=== PATIENT | male | born 1945 | race Caucasian/White ===

== ENCOUNTER → 2016-12-03 | Outpatient (CLI) | payer MEDICARE ==
--- NOTE | 2016-12-03 09:17 | US ---
EXAMINATION TYPE: US duplex aorta DATE OF EXAM: 12/03/2016 COMPARISON: NONE CLINICAL HISTORY: Z78.9 Screening for Abdominal Aortic Aneurysm. No symptoms, previous smoker for 40 years EXAM MEASUREMENTS: Abdominal Aorta: Proximal: 2.4 x 2.4cm Mid: 1.7 x 1.9cm Distal: 2.2 x 2.1cm Bifurcation: Rt = 1.5cm Lt = 1.4cm limited views due to bowel gas Portions of aorta are obscured by overlying bowel gas. Visualized portions show no evidence of aneury smal change. IMPRESSION: Slightly suboptimal study, visualized portions of abdominal aorta show no greater than 3 cm aneurysm.
== END | disposition home or self-care (01) ==
LOC: RADUSWWP 07:19
PROVIDERS: ATTEND Family Medicine
DX: Z13.6 Encounter for screening for cardiovascular disorders (principal); I71.4 Abdominal aortic aneurysm, without rupture; Z87.891 Personal history of nicotine dependence
CPT/HCPCS: 93979

== ENCOUNTER → 2016-12-24 | Outpatient (CLI) | payer MEDICARE ==
--- NOTE | 2016-12-29 10:01 | P.ARTDOP ---
Arterial Doppler LOWER EXTREMITY ARTERIAL DOPPLER: DATE OF SERVICE: 12/24/2016 Reason for study: Bilateral calf claudication. Doppler waveforms: Multiphasic to the dorsalis pedis on both sides.. Pulse volume recording: . Pressure gradients: 20 mmHg across the right thigh. 20 mmHg gradient at or above the thigh on the left.. Ankle-brachial indices: 0.75 on the right and 0.77 on the left.. Toe pressures: 60 on the right, 44 on the left Impression: Moderate right SFA disease. Moderate left SFA disease. Possible iliac component. Toe pressures probably adequate for healing..
== END | disposition home or self-care (01) ==
LOC: RADUSWWP 12:39
PROVIDERS: ATTEND Family Medicine
DX: I73.9 Peripheral vascular disease, unspecified (principal)
CPT/HCPCS: 93923

== ENCOUNTER 2018-02-13 12:04 | Inpatient (IN) | payer MEDICARE ==
[2018-02-13] MEDS ORDERED: ATORVASTATIN 80 MG TAB PO STA (12:26)
[2018-02-13] MEDS ORDERED: ASPIRIN 81 MG PO STA (12:26)
[2018-02-13] MEDS ORDERED: HEPARIN SODIUM,PORCINE 5,000 UNIT/ML 1 ML VIAL IV STA (12:26)
[2018-02-13] MEDS ORDERED: NITROGLYCERIN SL TABS 0.4 MG TAB SUBLINGUAL STA (12:26)
[2018-02-13] MEDS ORDERED: HYDROmorphone 1 MG/ML 1 ML SYRINGE IVP STA (12:27)
--- NOTE | 2018-02-13 12:31 | ED ---
General Adult HPI - General Chief complaint: Chest Pain Stated complaint: Chest Pain Time Seen by Provider: 02/13/18 12:15 Source: patient, RN notes reviewed Mode of arrival: ambulatory Limitations: no limitations - History of Present Illness Initial comments: This is a 72-year-old male with past medical history significant for high cholesterol and a family history positive for heart attack. Patient states he also had a stroke. Patient states she's been having intermittent chest pain for the last 3 days typically lasting about 30 minutes. Patient states when he has the pain short of breath and sometimes diaphoretic. Patient states today he 's been having the pain for about an hour and a half now and it is more severe than it has been in the past. Patient states she's also short of breath and sweating and nauseated. Patient denies any recent fever chills or cough. Patient denies being lightheaded or dizzy. Patient denies any syncopal or near syncopal episodes. Patient denies any palpitation. Patient denies any abdominal pain patient denies any vomiting diarrhea recently. - Related Data Home Medications Medication Instructions Recorded Confirmed Atorvastatin [Lipitor] 40 mg PO DAILY 02/13/18 02/13/18 FLUoxetine HCL [PROzac] 40 mg PO DAILY 02/13/18 02/13/18 Losartan [Cozaar] 25 mg PO DAILY 02/13/18 02/13/18 Rivaroxaban [Xarelto] 20 mg PO HS 02/13/18 02/13/18 rOPINIRole HCL [Requip] 1 mg PO HS 02/13/18 02/13/18 Allergies Allergy/AdvReac Type Severity Reaction Status Date / Time No Known Allergies Allergy Verified 02/13/18 12:33 Review of Systems ROS Statement: Those systems with pertinent positive or pertinent negative responses have been documented in the HPI. ROS Other: All systems not noted in ROS Statement are negative. Past Medical History Past Medical History: CVA/TIA, Hyperlipidemia, Hypertension Additional Past Medical History / Comment(s): 12 stroke at the [facility] 5 years ago History of Any Multi-Drug Resistant Organisms: None Reported Past Surgical History: No Surgical Hx Reported Past Psychological History: No Psychological Hx Reported Smoking Status: Former smoker Past Alcohol Use History: None Reported Past Drug Use History: None Reported General Exam - General Exam Comments Initial Comments: GENERAL: Patient is well-developed and well-nourished. Patient is nontoxic and well- hydrated and is in mild distress. ENT: Neck is soft and supple. No significant lymphadenopathy is noted. Oropharynx is clear. Moist mucous membranes. Neck has full range of motion without eliciting any pain. EYES: The sclera were anicteric and conjunctiva were pink and moist. Extraocular movements were intact and pupils were equal round and reactive to light. Eyelids were unremarkable. PULMONARY: Unlabored respirations. Good breath sounds bilaterally. No audible rales rhonchi or wheezing was noted. CARDIOVASCULAR: There is a regular rate and rhythm without any murmurs gallops or rubs. ABDOMEN: Soft and nontender with normal bowel sounds. No palpable organomegaly was noted. There is no palpable pulsatile mass. SKIN: Skin is clear with no lesions or rashes and otherwise unremarkable. NEUROLOGIC: Patient is alert and oriented x3. Cranial nerves II through XII are grossly intact. Motor and sensory are also intact. Normal speech, volume and content. Symmetrical smile. MUSCULOSKELETAL: Normal extremities with adequate strength and full range of motion. No lower extremity swelling or edema. No calf tenderness. LYMPHATICS: No significant lymphadenopathy is noted PSYCHIATRIC: Normal psychiatric evaluation. Normal interpersonal interactions appears functionally intact in deals appropriately with others. No signs of depression. No signs of anxiety. Limitations: no limitations Course Vital Signs 02/13/18 02/13/18 02/13/18 12:06 12:10 12:23 Temperature 98.2 F Pulse Rate 100 86 79 Pulse Rate [ Hair Dresser ] Respiratory 22 Rate Blood Pressure 87/55 112/61 101/56 O2 Sat by Pulse 100 97 96 Oximetry 02/13/18 02/13/18 02/13/18 12:26 12:30 12:33 Temperature Pulse Rate 79 82 Pulse Rate [ 95 Hair Dresser ] Respiratory 22 Rate Blood Pressure 78/44 88/52 O2 Sat by Pulse 95 94 L Oximetry 02/13/18 12:40 Temperature Pulse Rate 73 Pulse Rate [ Hair Dresser ] Respiratory 20 Rate Blood Pressure 100/58 O2 Sat by Pulse 95 Oximetry Medical Decision Making - Medical Decision Making EKG shows a sinus rhythm at 89 bpm ME interval 08 QRSs 122 QT interval 384 QTC is 467. Patient's EKG shows left bundle christina block which is new compared to an old EKG. I had a STEMI called overhead soon as I received the EKG. Dr. Sheth came down to see the patient he wanted aspirin and nitroglycerin and heparin bolus given to the patient immediately. He was informed that the blood pressure systolically was 112. Patient was then per. For the [employer]. EKG shows normal sinus rhythm at 74 bpm ME interval 158 QRS is under 2 QT interval 436 QTC is 483. Patient's got some ST segment elevation in V1 and V2 and depression in the remaining precordial leads as well as inferiorly I spoke with Dr. Baumann agreed to admit the patient admitted the patient - Lab Data Result diagrams: 02/13/18 12:22 02/13/18 12:22 Lab Results 02/13/18 02/13/18 02/13/18 Range/Units 12:22 12:22 12:22 WBC 14.5 H (3.8-10.6) k/uL RBC 4.92 (4.30-5.90) m/uL Hgb 14.2 (13.0-17.5) gm/dL Hct 43.2 (39.0-53.0) % MCV 87.7 (80.0-100.0) fL MCH 28.8 (25.0-35.0) pg MCHC 32.9 (31.0-37.0) g/dL RDW 13.9 (11.5-15.5) % Plt Count 272 (150-450) k/uL PT 10.9 (9.0-12.0) sec INR 1.1 (<1.2) APTT 25.2 (22.0-30.0) sec Sodium 136 L (137-145) mmol/L Potassium 4.0 (3.5-5.1) mmol/L Chloride 101 (98-107) mmol/L Carbon Dioxide 24 (22-30) mmol/L Anion Gap 11 mmol/L BUN 17 (9-20) mg/dL Creatinine 1.20 (0.66-1.25) mg/dL Est GFR (CKD-EPI)AfAm 70 (>60 ml/min/1.73 sqM) Est GFR (CKD-EPI)NonAf 60 (>60 ml/min/1.73 sqM) Glucose 128 H (74-99) mg/dL Calcium 9.7 (8.4-10.2) mg/dL Total Bilirubin 1.1 (0.2-1.3) mg/dL AST 73 H (17-59) U/L ALT 39 (21-72) U/L Alkaline Phosphatase 67 (38-126) U/L Total Protein 6.9 (6.3-8.2) g/dL Albumin 3.9 (3.5-5.0) g/dL Critical Care Time Critical Care Time: Yes Total Critical Care Time: 30 Disposition Clinical Impression: ST elevation myocardial infarction (STEMI) Disposition: ADMITTED IP TO THIS [facility] Time of Disposition: 12:31
[2018-02-13 12:33] LABS: HCT 43.2 % (39.0-53.0); HGB 14.2 gm/dL (13.0-17.5); MCH 28.8 pg (25.0-35.0); MCHC 32.9 g/dL (31.0-37.0); MCV 87.7 fL (80.0-100.0); Mean Platelet Volume 8.2; Platelet Count 272 k/uL (150-450); RBC 4.92 m/uL (4.30-5.90); RDW 13.9 % (11.5-15.5); WBC 14.5 k/uL (3.8-10.6)
[2018-02-13 12:42] LABS: Albumin 3.9 g/dL (3.5-5.0); Calcium 9.7 mg/dL (8.4-10.2); INR 1.1 (<1.2); Partial Thromboplastin Time 25.2 sec (22.0-30.0); Prothrombin Time 10.9 sec (9.0-12.0); Total Bilirubin 1.1 mg/dL (0.2-1.3); Total Protein 6.9 g/dL (6.3-8.2)
--- NOTE | 2018-02-13 12:47 | XR ---
EXAMINATION TYPE: XR chest 1V DATE OF EXAM: 02/13/2018 COMPARISON: 08/20/2012 HISTORY: Chest pain TECHNIQUE: Single frontal view of the chest is obtained. FINDINGS: There is pulmonary interstitial edema. Thoracic aorta is atheromatous. Heart size is dorcas l. IMPRESSION: There is new pulmonary interstitial edema compared to old exam. This could relate to acu te interstitial pneumonia or pulmonary fibrosis. I see no cardiomegaly or definite pleural fluid to s uggest heart failure. Heart failure not entirely excluded.
[2018-02-13 12:49] VITALS: RESP 20
[2018-02-13] MEDS ORDERED: IV FLUID CONTINUATION 500 ML IV ONE (12:50)
[2018-02-13] MEDS ORDERED: IV FLUID CONTINUATION 100 ML IV ONE (12:50)
[2018-02-13] MEDS ORDERED: LIDOCAINE 1% INJ 10MG/ML (20 ML MDV) ONE (12:54)
[2018-02-13 12:55] VITALS: BP 115/56; PULSE 79; TEMP 97.6
[2018-02-13] MEDS ORDERED: fentaNYL (PF) 50 MCG/ML 2 ML AMP IV ONE (13:05)
[2018-02-13] MEDS ORDERED: MIDAZOLAM 2 MG/2 ML VIAL ONE (13:07)
[2018-02-13] MEDS ORDERED: fentaNYL (PF) 50 MCG/ML 2 ML AMP ONE (13:07)
--- NOTE | 2018-02-13 13:08 | CONS ---
CONSULTATION Mr. Mccabe is a 72-year-old gentleman who came to the emergency room with a severe chest discomfort. Patient had pain started about a hour and a half ago. The pain was in the substernal area. Patient is extremely diaphoretic and slightly short of breath and nauseated. EKG was performed which showed new onset of left bundle branch block with a ST-segment elevation as well as ST-segment depression which is suggestive of possible acute CA. In view of the left bundle branch block and clinical symptoms suggestive of acute myocardial infarction, the patient was recommended to undergo cardiac catheterization. Patient had a chest pain lasting for about half an hour a couple of days ago. 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 The patient has been taking Xarelto since then. According to the , there is no definite history of atrial fibrillation. The patient has a history of hypertension and history of smoking. Patient denies any history of diabetes. PAST MEDICAL HISTORY: No history of any major surgeries other than the skin cancer and umbilical hernia. MEDICATIONS: The patient's home medications include Xarelto 20 mg daily, losartan 25 mg daily, Prozac once a day and Lipitor 40 mg daily. PHYSICAL EXAMINATION: At present reveals a 72-year-old gentleman who is in moderate distress because of the pain. Blood pressure is 112/70 mmHg. Patient's skin is diaphoretic. HEENT examination is negative. NECK: Supple. There is no increase in jugular venous pressure. Both the carotid pulses are felt. There is no bruit. Chest is symmetrical. Heart: The PMI is not felt. First and second heart sounds are normal. There is no evidence of any murmur. LUNGS: Bilateral diminished air entry. ABDOMEN: Soft. EXTREMITIES: Peripheral pulses are not felt. EKG shows evidence of intraventricular conduction delay of left bundle branch block with ST-segment elevation and diffuse ST-segment depression. A EKG in 2012 revealed normal sinus rhythm without any left bundle branch block. FINAL IMPRESSION: 1. This patient has episode of severe chest pain associated with diaphoresis. EKG shows a new onset of left bundle branch block, and this is suggestive of possible acute anterior wall myocardial infarction. 2. History of prior stroke. The patient is currently taking Xarelto. Discussed the patient with and the patient and advised further evaluation with a cardiac catheterization. There is increased risk of bleeding because the patient has been on Xarelto. Family fully understand the risk and benefits of the cardiac catheterization and stent placement. MMODL / IJN: [id number] /
[2018-02-13] MEDS ORDERED: MIDAZOLAM 2 MG/2 ML VIAL IV ONE ×2 (13:09)
[2018-02-13] MEDS ORDERED: LIDOCAINE 1% (PF) 10MG/ML VIAL SQ ONE (13:11)
[2018-02-13 13:21] LABS: Troponin I 5.89 ng/mL (0.000-0.034)
[2018-02-13] MEDS ORDERED: IOPAMIDOL-370 125ML BTL INJ ONE (13:42)
--- NOTE | 2018-02-14 06:56 | CC ---
CARDIAC CATHETERIZATION REPORT Mr. Mccabe is a 72-year-old gentleman who came with severe chest discomfort. EKG shows new left bundle branch block pattern. This was suggestive of acute myocardial infarction and patient was advised cardiac catheterization. This patient has a past history of a stroke and has been on Xarelto. He also has a history of peripheral vascular disease. PROCEDURE: The right groin was prepped and draped in the usual manner and the skin was infiltrated with 2% Xylocaine. The right femoral artery was entered using Seldinger technique and #6-Turkmen sheath was placed in. The patient's iliac arteries were tortuous. Initially attempt was made to advance a JL4 catheter over the wire , which was unsuccessful and subsequently the catheter was removed and the long sheath was placed in and subsequently over the wire, right and left heart catheterization was performed. Left main coronary artery has a haziness with clot which extends into the ostial portion of the LAD and then there is a sluggish flow noted in the LAD. The circumflex coronary artery proximal circumflex coronary artery has a 40% to 50% stenosis. Right coronary artery is small and dominant. RECOMMENDATIONS: The films were reviewed with Dr. Monet. In view of the clot in the left main extending into the LAD, patient is considered high risk for a procedure. Patient has evidence of peripheral vascular disease and the iliac arteries are very tortuous so it will be very difficult to put any Impella intra-aortic balloon through the femoral approach. I also discussed with the cardiac surgeon as patient has been on Xarelto and ongoing STEMI, the patient is considered for high risk to take him emergently for the open heart surgery. We discussed with Dr. Keys and the patient will be transferred [place] [facility] [place]. This was in length discussed with the family members. Patient carries a significantly elevated risk and they were explained to that that there is a risk involved in the transfer, but this is his best option and they would like to proceed with it. MMODL / IJN: [id number] /
--- NOTE | 2018-02-14 08:18 | HP ---
HISTORY AND PHYSICAL HISTORY/PHYSICAL AND DISCHARGE SUMMARY: DATE OF ADMISSION: February 13, 2018. DATE OF TRANSFER: February 13, 2018. FINAL DIAGNOSIS: Acute ST-elevation anterior wall myocardial infarction. HOSPITAL COURSE: This patient was not seen by me. I was called from the ER by Dr. Mendoza. 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 I came this evening to find the patient. Could not find the patient in the hospital, not in ICU. I called around and I was then told the patient had a cardiac cath and was found to have left main disease and patient was transferred out to [facility]. I did not receive a call from anyone regarding this. Hence, I am putting this note and I never saw the patient. For more details, please look at the ER chart and Cardiology notes for further details. Copy to Dr. Box. MAXIME / IJN: [id number] /
== END 2018-02-13 22:05 | disposition short-term general hospital (02) | DRG 282 ==
LOC: EC 12:04 → 6ICU 12:27
PROVIDERS: ADMIT Hospitalist; ATTEND Hospitalist
PROC: B2111ZZ Fluoroscopy of Multiple Coronary Arteries using Low Osmolar Contrast (ICD-10-PCS; 2018-02-13)
PROC: 4A023N8 Measurement of Cardiac Sampling and Pressure, Bilateral, Percutaneous Approach (ICD-10-PCS; principal; 2018-02-13 12:47)
DX: I21.09 ST elevation (STEMI) myocardial infarction involving other coronary artery of anterior wall (principal); I10 Essential (primary) hypertension; I25.10 Atherosclerotic heart disease of native coronary artery without angina pectoris; E78.00 Pure hypercholesterolemia, unspecified; E78.5 Hyperlipidemia, unspecified; F32.9 Major depressive disorder, single episode, unspecified; I44.7 Left bundle-branch block, unspecified; Z86.73 Personal history of transient ischemic attack (TIA), and cerebral infarction without residual deficits; Z79.01 Long term (current) use of anticoagulants; Z79.899 Other long term (current) drug therapy; Z85.828 Personal history of other malignant neoplasm of skin; Z87.891 Personal history of nicotine dependence; Z82.49 Family history of ischemic heart disease and other diseases of the circulatory system
CPT/HCPCS: 71045; 80053; 82550; 82553; 84484; 85027; 85610; 85730; 93005; 93454; 96374; 99291